=== PATIENT | male | born 1955 | race Caucasian/White ===

== ENCOUNTER → 2017-01-06 | Day surgery (SDC) | payer BC, OTHER ==
[2016-12-27 12:54] VITALS: BMI 37.0
[~2017-01-06] VITALS: Ht 172.7 cm; Wt 109.1 kg
[~2017-01-06] MED LIST: AMLO10TA4 PO; ASPCH81X PO; ATOR-24 PO; CLON1TAB3 PO; GLIM4TAB2 PO; GLIP5TAB11 PO; INSDGI SC; LIDOCAINE HCL 2% 2 ML VIAL (20MG/ML) ONE; METF1TAB53 PO; METO1TAB69 PO; METO50TA7 PO; MIDAZOLAM HCL 1 MG/ML 2ML VIAL ONE; OMEP20CA9 PO; PROPOFOL IV EMULSION 10 MG/ML 20 ML VIAL IV ONE
[2017-01-06 13:50] VITALS: Ht 172.7 cm; Wt 109.1 kg
--- NOTE | 2017-01-06 14:07 | Endo History and Physical ---
History & Physical Date of Service: Jan 06, 2017. Chief Complaint: screening Referring Physician: RUDDY Shaw History of Present Illness For colonoscopy Past Surgical History Hx Cardiac Surgery: No Hx Internal Defibrillator: No Hx Pacemaker: No Hx Abdominal Surgery: No Hx of Implantable Prosthesis: No Hx Post-Op Nausea and Vomiting: No Hx Cancer Surgery: No Hx Thoracic Surgery: No Hx Orthopedic: Yes (CERVICAL DISCECTOMY) Hx Urinary Tract Surgery: No Family History None Social History Smoking Status: Former Smoker Hx Substance Use: No Hx Alcohol Use: Yes (6-8 DRINKS EVERY OTHER DAY) Allergies Coded Allergies: Codeine (Verified Allergy, Unknown, ? CAN'T REMEMBER, 01/06/17) Current Medications Reported Home Medications Medications Dose Route/Sig Max Daily Dose Days Date Category Aspirin Chewable (Aspirin) 81 Mg Chew 81 Mg PO QAM 12/27/16 Reported Glimepiride 4 Mg Tab 1 Tab PO BID 90 12/27/16 Reported Toprol-Xl (Metoprolol Succinate) 100 Mg Tabcr 150 Mg PO QPM 12/27/16 Reported Klonopin (Clonazepam) 1 Mg Tab 1 Mg PO QID 12/27/16 Reported Norvasc (Amlodipine Besylate) 10 Mg Tab 10 Mg PO QAM 12/27/16 Reported Lipitor (Atorvastatin Calcium) 40 Mg Tab 40 Mg PO QPM 12/27/16 Reported Prilosec (Omeprazole) 20 Mg Cap 20 Mg PO QAM 12/27/16 Reported Glucophage Ext Rel (Metformin Hcl) 1,000 Mg Tab 1,000 Mg PO BID 12/27/16 Reported Lantus (Insulin Glargine) 100 Unit/Ml Inj 50 Units SC QAM 12/27/16 Reported Vital Signs Weight (Kilograms): 109.09 Height (Feet): 5 Height (Inches): 8 Physical Exam General Appearance: WD/WN Respiratory/Chest: Respiratory effort: no dyspnea Cardiovascular: Heart Auscultation: RRR Abdomen: Inspection & Palpation: soft Assessment and Plan For screening colonoscopy
--- NOTE | 2017-01-06 14:52 | Discharge Instructions ---
Endoscopy Patient Instructions Date / Procedure(s) Performed Jan 06, 2017. Colonoscopy Allergy Information Coded Allergies: Codeine (Verified Allergy, Unknown, ? CAN'T REMEMBER, 01/06/17) Discharge Date / Findings Jan 06, 2017. polyps Medication Instructions Stopped Medication(s): metformin and asa Restart Stopped Medication(s): resume meds Reported Home Medications Medications Dose Route/Sig Max Daily Dose Days Date Category Aspirin Chewable (Aspirin) 81 Mg Chew 81 Mg PO QAM 12/27/16 Reported Glimepiride 4 Mg Tab 1 Tab PO BID 90 12/27/16 Reported Toprol-Xl (Metoprolol Succinate) 100 Mg Tabcr 150 Mg PO QPM 12/27/16 Reported Klonopin (Clonazepam) 1 Mg Tab 1 Mg PO QID 12/27/16 Reported Norvasc (Amlodipine Besylate) 10 Mg Tab 10 Mg PO QAM 12/27/16 Reported Lipitor (Atorvastatin Calcium) 40 Mg Tab 40 Mg PO QPM 12/27/16 Reported Prilosec (Omeprazole) 20 Mg Cap 20 Mg PO QAM 12/27/16 Reported Glucophage Ext Rel (Metformin Hcl) 1,000 Mg Tab 1,000 Mg PO BID 12/27/16 Reported Lantus (Insulin Glargine) 100 Unit/Ml Inj 50 Units SC QAM 12/27/16 Reported Provider Instructions Activity Restrictions - No exercising or heavy lifting for 24 hours. - Do not drink alcohol the day of the procedure. - Do not drive a car or operate machinery until the day after the procedure. - Do not make any important decisions or sign important papers in 24 hours after the procedure. Following Day: - Return to full activity which may include returning to work/school. Diet Start your diet with liquids and light foods (jello, soup, juice, toast). Then eat your usual diet if not nauseated. Treatment For Common After Affects For mild abdominal pain, bloating, or excessive gas: - Rest - Eat lightly - Lie on right side Follow-Up Information Follow-up with roe paulino as scheduled Anesthesia Information What You Should Know You have had a procedure that required some medicine to reduce anxiety and discomfort. This treatment is called moderate sedation. After receiving the treatment, you may be sleepy, but you will be able to breathe on your own. The effects of the treatment may last for several hours. Follow these instructions along with Activity/Diet recommendations noted above: * Do NOT do anything where dizziness or clumsiness would be dangerous. * Rest quietly at home today, then you can be up and about tomorrow. * Have a responsible person stay with you the rest of today. * You may have had an I.V. today. If so, you may take the dressing off later today. Recommendations Call your doctor if: * Trouble breathing * Continuous vomiting for more than 24 hours * Temperature above 101 degrees * Severe abdominal pain or bloating * Pain not relieved by pain medicine ordered * There is increased drainage or redness from any incision * A large amount of rectal bleeding greater than 2-3 tablespoons. (If you had a polyp/s removed or have hemorrhoids, a small amount of blood - from the rectum is to be expected.) * You have any unanswered questions or concerns. IN THE EVENT OF A SERIOUS EMERGENCY, GO TO THE NEAREST EMERGENCY ROOM Your discharge instructions were prepared by provider Sky Duran. Patient Instructions Signature Page Srikanth Ho Patient (or Guardian) Signature/Date: I have read and understand the instructions given to me by my caregivers. Caregiver/RN/Doctor Signature/Date: The above-named patient and/or guardian has received patient instructions on this date. + Original Patient Signature Page (only) stays with chart. Please make copy for patient.
--- NOTE | 2017-01-06 14:56 | GI REPORT ---
Procedure Date: 01/06/2017 2:07 PM Procedure: Colonoscopy Indications: Screening for colorectal malignant neoplasm Medicines: Midazolam 2 mg IV, Propofol total dose 350 mg IV, Lidocaine 40 mg IV Complications: No immediate complications. Estimated Blood Loss: Estimated blood loss: none. Procedure: Pre-Anesthesia Assessment: - Prior to the procedure, a History and Physical was performed, and patient medications, allergies and sensitivities were reviewed. The patient's tolerance of previous anesthesia was reviewed. - The risks and benefits of the procedure and the sedation options and risks were discussed with the patient. All questions were answered and informed consent was obtained. - The risks and benefits of the procedure and the sedation options and risks were discussed with the patient. All questions were answered and informed consent was obtained. After I obtained informed consent, the scope was passed under direct vision. Throughout the procedure, the patient's blood pressure, pulse, and oxygen saturations were monitored continuously. The scope was introduced through the anus and advanced to the cecum, identified by appendiceal orifice and ileocecal valve. The colonoscopy was somewhat difficult due to significant looping. Successful completion of the procedure was aided by applying abdominal pressure. The patient tolerated the procedure well. The quality of the bowel preparation was good. Findings: A 6 mm polyp was found in the proximal transverse colon. The polyp was sessile. The polyp was removed with a hot snare. Resection and retrieval were complete. Estimated blood loss: none. A 6 mm polyp was found at the hepatic flexure. The polyp was sessile. The polyp was removed with a hot snare. Resection and retrieval were complete. Estimated blood loss: none. A 4 mm polyp was found in the descending colon. The polyp was sessile. The polyp was removed with a hot snare. Resection and retrieval were complete. Estimated blood loss: none. Impression: - One 6 mm polyp in the proximal transverse colon, removed with a hot snare. Resected and retrieved. - One 6 mm polyp at the hepatic flexure, removed with a hot snare. Resected and retrieved. - One 4 mm polyp in the descending colon, removed with a hot snare. Resected and retrieved. Recommendation: - Discharge patient to home (ambulatory). - Continue present medications. - Await pathology results. - Return to primary care physician PRN. Sky Duran M.D. Sky Duran MD 01/06/2017 2:56:00 PM This report has been signed electronically. Note Initiated On: 01/06/2017 2:07 PM I attest to the content of the Intraoperative Record and orders documented therein, exceptions below
--- NOTE | 2017-01-06 15:08 | Anesthesiology Progress Note ---
Anesthesia Post Op Note Date & Time Jan 06, 2017 at 15:08 Vital Signs Pain Intensity: 0 Vital Signs Past 12 Hours Date Time Temp Pulse Resp B/P (MAP) Pulse Ox O2 Delivery O2 Flow Rate FiO2 01/06/17 14:10 36.8 83 16 160/94 (116) 95 Room Air Notes Mental Status: alert / awake / arousable, participated in evaluation Pt Amnestic to Procedure: Yes Nausea / Vomiting: adequately controlled Pain: adequately controlled Airway Patency, RR, SpO2: stable & adequate BP & HR: stable & adequate Hydration State: stable & adequate Anesthetic Complications: no major complications apparent
[2017-01-06 15:25] VITALS: BP 164/91; PULSE 74; O2SAT 97
== END | disposition home or self-care (01) ==
LOC: C.GI 13:45
PROVIDERS: ATTEND Internal Medicine Gastroenterology
DX: Z12.11 Encounter for screening for malignant neoplasm of colon (principal); D12.3 Benign neoplasm of transverse colon; K63.5 Polyp of colon; Z87.891 Personal history of nicotine dependence

== ENCOUNTER 2017-02-08 14:38 | Emergency (ER) | payer OTHER ==
[~2017-02-08] VITALS: Ht 171.5 cm; Wt 112.5 kg
[~2017-02-08 14:38] MED LIST changes: -GLIP5TAB11 PO; -LIDOCAINE HCL 2% 2 ML VIAL (20MG/ML) ONE; -METO50TA7 PO; -MIDAZOLAM HCL 1 MG/ML 2ML VIAL ONE; -PROPOFOL IV EMULSION 10 MG/ML 20 ML VIAL IV ONE
[2017-02-08 14:41] VITALS: TEMP 37.1; Ht 171.5 cm; Wt 112.5 kg
[2017-02-08] MEDS ORDERED: MoRPHine SULFATE 4 MG/ML 1 ML CARP\\VIAL IV STA (15:25)
[2017-02-08] MEDS ORDERED: ONDANSETRON INJ 2 MG/ML 2 ML VIAL IV STA (15:25)
[2017-02-08] MEDS ORDERED: GLIP5TAB11 PO (15:36)
[2017-02-08] MEDS ORDERED: METO50TA7 PO ×2 (15:36)
[2017-02-08 16:30] LABS: BASO % 0.4 %; BASO ABS # 0.03 K/uL (0-0.2); COMPLETE YES; EOS % 7.8 %; IG% 0.4 %; LYMPH % 25.5 %; LYMPH ABS # 1.87 K/uL (1.2-3.4); MEAN CELL VOLUME 85.2 fL (80-100); MEAN CORPUSCULAR HEMOGLOBIN 29.5 pg (25-34); MEAN CORPUSCULAR HGB CONC 34.7 g/dl (32-36); MONO % 9.9 %; PLATELET COUNT 236 K/uL (130-400); RED BLOOD COUNT 5.28 M/uL (4.7-6.1); WHITE BLOOD COUNT 7.34 K/uL (4.8-10.8)
[2017-02-08 16:38] LABS: BUN/CREATININE RATIO 11.2 (10-20); CALCIUM 9.9 mg/dl (8.5-10.1); CREATININE 1.1 mg/dl (0.60-1.40)
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
[2017-02-08 18:10] VITALS: BP 154/102; PULSE 93; O2SAT 94
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
== END 2017-02-08 18:00 | disposition home or self-care (01) ==
LOC: EDBD 14:38 → C.EDC 14:39
DX: M54.2 Cervicalgia (principal); M54.5 Low back pain; V43.52XA Car driver injured in collision with other type car in traffic accident, initial encounter; I44.0 Atrioventricular block, first degree; I10 Essential (primary) hypertension; E78.5 Hyperlipidemia, unspecified; E11.9 Type 2 diabetes mellitus without complications; F41.9 Anxiety disorder, unspecified; K21.9 Gastro-esophageal reflux disease without esophagitis; Z87.891 Personal history of nicotine dependence; Z79.82 Long term (current) use of aspirin; Z79.4 Long term (current) use of insulin; Z79.899 Other long term (current) drug therapy; Z98.890 Other specified postprocedural states; Z88.5 Allergy status to narcotic agent